=== PATIENT | male | born 1980 | race Caucasian/White ===

== ENCOUNTER 2025-07-22 08:47 | Emergency (ER) | payer SELFPAY ==
[2025-07-22] MEDS: Fluorescein 1 MG Ophth Strip EYEBOTH ONE (09:00)
[2025-07-22] MEDS: Tetracaine HCl/PF 0.5% 4 ML Bottle EYEBOTH ONE (09:00)
== END 2025-07-22 10:04 | disposition home or self-care (01) ==
LOC: DL.ED 08:47
DX: S05.01XA Injury of conjunctiva and corneal abrasion without foreign body, right eye, initial encounter (principal); F17.210 Nicotine dependence, cigarettes, uncomplicated; W20.8XXA Other cause of strike by thrown, projected or falling object, initial encounter; Y99.0 Civilian activity done for income or pay
CPT/HCPCS: 99283; A9270-GY; J3490